=== PATIENT | female | born 1945 | race Caucasian/White ===

== ENCOUNTER 2021-09-21 07:53 | Emergency (ER) | payer BC ==
[~2021-09-21] VITALS: Ht 154.9 cm; Wt 62.0 kg
--- NOTE | 2021-09-21 08:07 | PHYS DOC ---
General Adult HPI: HPI: Patient is a 76 year old female who presents with left lower quad abdominal pain, nausea, vomiting, bloody stools, diarrhea. Symptoms began yesterday. She denies previous similar symptoms. She denies fevers or chills. She denies urinary symptoms. She is not taking anticoagulants. She denies pelvic or abdominal trauma. No previous abdominal surgeries. She denies dizziness, weakness, diaphoresis, fall, syncope. She denies chest pain, cough, dyspnea. She denies recent travel, surgery, hospitalization. She believes that the symptoms began after she ate some cheese puffs. Review of Systems: Review of Systems: Constitutional: Denies fever or chills. [] Respiratory: Denies cough or shortness of breath. [] Cardiovascular: Denies chest pain or edema. [] GI: Left lower quadrant abdominal pain, nausea, vomiting, diarrhea, hem atochezia peer : Denies any urinary symptoms. Musculoskeletal: Denies back pain or joint pain. [] Integument: Denies rash. [] Neurologic: Denies headache, focal weakness or sensory changes. Denies dizziness. Psychiatric: Anxiety Heart Score: C/O Chest Pain: No Risk Factors: Risk Factors: DM, Current or recent (<one month) smoker, HTN, HLP, family history of CAD, obesity. Risk Scores: Score 0 - 3: 2.5% MACE over next 6 weeks - Discharge Home Score 4 - 6: 20.3% MACE over next 6 weeks - Admit for Clinical Observation Score 7 - 10: 72.7% MACE over next 6 weeks - Early Invasive Strategies Physical Exam: PE: Constitutional: Well developed, well nourished, no acute distress, non-toxic appearance. [] HENT: Normocephalic, atraumatic, oropharynx is patent and clear, mucous members are moist Eyes: Conjunctiva normal, no discharge. [] Neck: Normal range of motion, no tenderness, supple, no stridor. [] Cardiovascular:Heart rate regular rhythm, +2 radial +2 posterior tibial pulses bilaterally Lungs & Thorax: Bilateral breath sounds clear to auscultation [] Abdomen: Abdomen is soft, nondistended, nontender to palpation, no palpable organomegaly. No palpable pulsatile mass. No audible bruit. No CVA tenderness. No flank abdominal ecchymoses. Normal bowel sounds Skin: Warm, dry, no erythema, no rash. [] Back: No tenderness, no CVA tenderness. [] Extremities: No tenderness, no cyanosis, no clubbing, ROM intact, no edema. No calf tenderness. Neurologic: Alert and oriented X 3, normal motor function, normal sensory function, no focal deficits noted. [] Psychologic: Affect is anxious EKG: EKG: [] Radiology/Procedures: Radiology/Procedures: IMAGING REPORT Signed PATIENT: MAX QUARLES ACCOUNT: [id number] : 1945 LOCATION: ER AGE: 76 SEX: F EXAM STATUS: REG ER ORD. PHYSICIAN: SANCHEZ WALSH DO REASON: LLQ pain, hematochezia PROCEDURE: CT ABD PELV W/ IV CONTRST ONLY EXAM: CT Abdomen and Pelvis with IV contrast CLINICAL HISTORY: Reason: LLQ pain, hematochezia / Spl. Instructions: omnio 300 60ml / History: . COMPARISON: none TECHNIQUE: Helical CT of the abdomen and pelvis was performed following the administration of intravenous contrast. Axial, coronal and sagittal reformatted images were generated. PQRS compliance statement - One or more of the following individualized dose reduction techniques were utilized for this study: 1. Automated exposure control 2. Adjustment of the mA and/or kV according to patient size 3. Use of iterative reconstruction technique FINDINGS: Lower Chest: Lung bases are clear. Minimal left basilar and lingular subsegmental atelectasis. Heart size is normal. No pericardial effusion. Abdomen and Pelvis: Liver is normal in size and attenuation with no focal abnormality. Gallbladder surgically absent. No significant biliary ductal dilation. The spleen, adrenals, and pancreas are unremarkable. Symmetric nephrograms. No perinephric inflammation. No nephrolithiasis or hydroureteronephrosis. Tiny hiatal hernia. Stomach is unremarkable. No evidence of bowel obstruction the appendix is normal. There is mild to moderate circumferential wall thickening of the distal transverse and the majority of the descending colon to the level of the proximal sigmoid colon with associated pericolonic inflammation. There is also associated prominent amount of submucosal fat which is nonspecific but can be seen in the setting of chronic inflammatory bowel disease. There is interspersed areas of colonic and sigmoid diverticulosis with no definite evidence of diverticulitis. No free intra-abdominal air or free fluid. Prominent reyes hepatis and peripancreatic lymph nodes measuring up to 9 mm in short axis, likely reactive. No pathologically enlarged pelvic lymph nodes. There is a moderate amount of aortobiiliac atherosclerotic disease. No evidence of aneurysmal dilation or definite thromboembolic disease. Bladder is decompressed precluding complete evaluation. Diminutive anteverted uterus is noted. No suspicious adnexal masses. Intra-abdominal walled reveals no acute abnormality. Tiny periumbilical fat- containing hernia. Bones: No acute or suspicious osseous abnormalities. IMPRESSION: 1. Findings consistent with mild to moderate segmental colitis involving the distal transverse and the majority of the descending colon with associated diverticulosis. No evidence of perforation or abscess formation. This favors a infectious or inflammatory process. Ischemia is also in the differential. Correlation with serum lactate levels is recommended. 2. Other chronic/incidental findings, as detailed above. Electronically signed by: Elidia Mahajan DO (09/21/2021 9:56 AM) [id number] DICTATED and SIGNED BY: ELIDIA MAHAJAN DO Course & Med Decision Making: Course & Med Decision Making Pertinent Labs and Imaging studies reviewed. (See chart for details) The patient is given IV fluids, IV Zofran. She declined pain medication. I have discussed the findings, differential diagnosis and plan of care with her. No diarrhea or stool produced here. I recommended she contact her PCP for follow-up, she should also consider outpatient GI consultation if symptoms persist. She will be empirically treated for colitis/diverticulitis. Home care instructions are provided. Strict return precautions are given. She is able to tolerate p.o. fluids and ate Jell-O here without difficulty, no further vomiting. She verbalizes understanding of all instructions provided. She is discharged in stable and improved condition. Kris Disclaimer: Kris Disclaimer: This electronic medical record was generated, in whole or in part, using a voice recognition dictation system. Departure Departure Impression: Primary Impression: Colitis Additional Impression: Diverticulosis Disposition: HOME / SELF CARE / HOMELESS Condition: STABLE Referrals: STACEY TILLMAN MD Patient Instructions: Colitis, Diverticulitis Additional Instructions: Take the full course of antibiotics. Use the pain medicine and nausea medicine as needed. Please return to the ER immediately for uncontrolled vomiting, dehydration, more severe abdominal pain, temperature 100.4 or higher or for any other concerns. Please contact your primary care doctor and make sure you follow-up within the next week or so. You are also being given information for outpatient GI follow-up, should your bleeding and pain continue. Scripts Metronidazole (METRONIDAZOLE) 500 Mg Tablet 1 TAB PO TID for 10 Days, #30 TAB 0 Refills Prov: SANCHEZ WALSH DO 09/21/21 Ciprofloxacin Hcl (CIPROFLOXACIN HCL) 500 Mg Tablet 1 TAB PO BID for 10 Days, #20 TAB Prov: SANCHEZ WALSH DO 09/21/21 Ondansetron (ONDANSETRON ODT) 4 Mg Tab.rapdis 1 TAB PO PRN Q6-8HRS for nausea and vomiting, #20 TAB Prov: SANCHEZ WALSH DO 09/21/21 Hydrocodone Bit/Acetaminophen (HYDROCODONE-APAP 5-325 ) 1 Tab Tablet 1 TAB PO PRN Q6HRS PRN for PAIN, #20 TAB 0 Refills Prov: SANCHEZ WALSH DO 09/21/21 SANCHEZ WALSH DO Sep 21, 2021 08:07
[2021-09-21] MEDS ORDERED: IV NORMAL SALINE 1000ML BAG 1,000 ML IV ONE (08:15)
[2021-09-21] MEDS ORDERED: ONDANSETRON PF 4 MG/2 ML VIAL. IVP ONE (08:15)
[2021-09-21 08:50] LABS: BASO % 0 % (0-3); EOS % 0 % (0-3); HEMATOCRIT 44.2 % (36.0-47.0); HEMOGLOBIN 14.7 g/dL (12.0-15.5); LYMPH # 1.4 x10^3/uL (1.0-4.8); LYMPH % 9 % (24-48); MEAN CORPUSCULAR HEMOGLOBIN 28 pg (25-35); MEAN CORPUSCULAR HGB CONC 33 g/dL (31-37); MEAN CORPUSCULAR VOLUME 86 fL (79-100); MONO # 0.7 x10^3/uL (0.0-1.1); MONO % 5 % (0-9); NEUT # 12.4 x10^3/uL (1.8-7.7); NEUT % 86 % (31-73); PLATELET COUNT 337 x10^3/uL (140-400); RED BLOOD COUNT 5.15 x10^6/uL (3.50-5.40); RED CELL DISTRIBUTION WIDTH 13.6 % (11.5-14.5); WHITE BLOOD COUNT 14.5 x10^3/uL (4.0-11.0)
[2021-09-21 09:01] LABS: BACTERIA,URINE FEW /HPF (0-FEW); RBC,URINE 0 /HPF (0-2); WBC,URINE OCC /HPF (0-4)
[2021-09-21 09:03] LABS: CALCIUM 9.4 mg/dL (8.5-10.1); GFR 53.8; POTASSIUM 3.8 mmol/L (3.5-5.1)
[2021-09-21 09:08] LABS: ALBUMIN 3.9 g/dL (3.4-5.0); ALBUMIN/GLOBULIN RATIO 0.8 (1.0-1.7); TOTAL BILIRUBIN 1.1 mg/dL (0.2-1.0); TOTAL PROTEIN 8.8 g/dL (6.4-8.2)
[2021-09-21] MEDS ORDERED: CONTRAST GIVEN. MC PRN (09:15)
[2021-09-21] MEDS ORDERED: IOHEXOL 300 MG/ML 100ML VIAL. IV ONE (09:15)
--- NOTE | 2021-09-21 09:59 | RAD ---
EXAM: CT Abdomen and Pelvis with IV contrast CLINICAL HISTORY: Reason: LLQ pain, hematochezia / Spl. Instructions: omnio 300 60ml / History: . COMPARISON: none TECHNIQUE: Helical CT of the abdomen and pelvis was performed following the administration of intrave nous contrast. Axial, coronal and sagittal reformatted images were generated. PQRS compliance statement - One or more of the following individualized dose reduction techniques wer e utilized for this study: 1. Automated exposure control 2. Adjustment of the mA and/or kV according to patient size 3. Use of iterative reconstruction technique FINDINGS: Lower Chest: Lung bases are clear. Minimal left basilar and lingular subsegmental atelectasis. Heart size is nash l. No pericardial effusion. Abdomen and Pelvis: Liver is normal in size and attenuation with no focal abnormality. Gallbladder surgically absent. No significant biliary ductal dilation. The spleen, adrenals, and pancreas are unremarkable. Symmetric nephrograms. No perinephric inflammation. No nephrolithiasis or hydroureteronephrosis. Tiny hiatal hernia. Stomach is unremarkable. No evidence of bowel obstruction the appendix is normal. There is mild to moderate circumferential wall thickening of the distal transverse and the majority of the descending colon to the level of the proximal sigmoid colon with associated pericolonic inflam mation. There is also associated prominent amount of submucosal fat which is nonspecific but can be s een in the setting of chronic inflammatory bowel disease. There is interspersed areas of colonic and sigmoid diverticulosis with no definite evidence of diverticulitis. No free intra-abdominal air or fr ee fluid. Prominent reyes hepatis and peripancreatic lymph nodes measuring up to 9 mm in short axis, likely dusty ctive. No pathologically enlarged pelvic lymph nodes. There is a moderate amount of aortobiiliac atherosclerotic disease. No evidence of aneurysmal dilatio n or definite thromboembolic disease. Bladder is decompressed precluding complete evaluation. Diminutive anteverted uterus is noted. No mary lou picious adnexal masses. Intra-abdominal walled reveals no acute abnormality. Tiny periumbilical fat-containing hernia. Bones: No acute or suspicious osseous abnormalities. IMPRESSION: 1. Findings consistent with mild to moderate segmental colitis involving the distal transverse and th e majority of the descending colon with associated diverticulosis. No evidence of perforation or absc ess formation. This favors a infectious or inflammatory process. Ischemia is also in the differential . Correlation with serum lactate levels is recommended. 2. Other chronic/incidental findings, as detailed above. Electronically signed by: Channing Mahajan DO (09/21/2021 9:56 AM) [id number]
[2021-09-21] MEDS ORDERED: CIPR500T2 PO (10:51)
[2021-09-21] MEDS ORDERED: ONDA4TAB12 PO (10:51)
[2021-09-21] MEDS ORDERED: HYDR-2761 PO (10:51)
[2021-09-21] MEDS ORDERED: METR-34 PO (10:51)
[2021-09-21 10:58] VITALS: BP 194/77
== END 2021-09-21 11:21 | disposition home or self-care (01) ==
LOC: ER 07:53
DX: K52.9 Noninfective gastroenteritis and colitis, unspecified (principal); K57.90 Diverticulosis of intestine, part unspecified, without perforation or abscess without bleeding
CPT/HCPCS: 36415; 74177; 80053; 81001; 83605; 83690; 85025; 85610; 85730; 96361; 96374; 99285; J2405; J7030; Q9967